=== PATIENT | female | born 1985 | race Caucasian/White ===

== ENCOUNTER 2020-12-30 16:53 | Inpatient (IN) ==
[2020-12-30] MEDS ORDERED: Lactated Ringers 1000 ml BAG 1,000 ML IV ONE ×2 (17:46→19:28)
[2020-12-30] MEDS ORDERED: Buffered Lidocaine 1% SYRIN 1 ml INTRADERM ONE (17:46)
[2020-12-30] MEDS ORDERED: Lactated Ringers 1000 ml BAG 1,000 ML IV SCH ×2 (18:00→20:00)
[2020-12-30] MEDS ORDERED: OBEPIDURAL 250 ML EPIDURAL ONE (18:28)
[2020-12-30 18:57] LABS: ABS Basophils 0.1 10^3/ul (0-0.2); ABS Lymphocytes 2.7 10^3/ul (1.0-4.8); ABS Monocytes 0.8 10^3/ul (0-0.8); ABS Neutrophils 18.3 10^3/ul (1.5-7.7); Eosinophil % 0.1 %; Hematocrit 37 % (35-47); Hemoglobin 12.8 g/dL (12.0-16.0); Lymphocyte % 12.4 %; Mean Corpuscular HGB Conc 34 g/dL (31-36); Mean Corpuscular Hemoglobin 31 pg (27-31); Mean Corpuscular Volume 91 fL (80-97); Mean Platelet Volume 7.6 fL (7.4-10.4); Platelet Count 337 10^3/uL (150-450); Red Blood Count 4.13 10^6 /uL (3.70-4.87); Red Cell Distribution Width 13 % (10-15); White Blood Count 21.8 10^3/uL (3.5-10.8)
[2020-12-30 19:00] LABS: Urine Appearance Cloudy; Urine Bilirubin Negative (Negative); Urine Blood 2+ (Negative); Urine Color Yellow; Urine Glucose Negative (Negative); Urine Ketones 1+ (Negative); Urine Nitrite Negative (Negative); Urine Protein 1+(30 mg/dL) (Negative); Urine Specific Gravity 1.017 (1.002-1.030); Urine Urobilinogen Positive (Negative)
[2020-12-30] MEDS ORDERED: Phenylephrine 40 mcg/mL 10mL (400mcg) SYRINGE ONE (19:08)
[2020-12-30 19:16] LABS: Urine Bacteria Absent (Absent); Urine Red Blood Cell 3+(>10/hpf) (Absent); Urine Squamous Epithelial Cell Present (Absent); Urine White Blood Cell Trace(0-5/hpf) (Absent)
[2020-12-30] MEDS ORDERED: Sodium Citrate/Citric Acid LIQ 15 ML UDC PO PRN (19:28)
[2020-12-30] MEDS ORDERED: Phenylephrine 40 mcg/mL 10mL (400mcg) SYRINGE IV PUSH PRN ×2 (19:28)
[2020-12-30 19:30] LABS: Rapid COVID-19 Molecular Undetected (Undetected)
[2020-12-30 19:39] LABS: Rapid COVID-19 Molecular Undetected (Undetected)
[2020-12-30 19:46] LABS: Urine Benzodiazepine Screen None Detected (None Detect); Urine Cannabinoids Screen None Detected (None Detect); Urine Opiates Screen None Detected (None Detect)
[2020-12-30] MEDS ORDERED: OBEPIDURAL 250 ML EPIDURAL SCH (20:00)
[2020-12-30 20:26] LABS: Urine Appearance Cloudy; Urine Bilirubin Negative (Negative); Urine Blood Negative (Negative); Urine Color Yellow; Urine Glucose Negative (Negative); Urine Ketones 2+ (Negative); Urine Nitrite Negative (Negative); Urine Protein 1+(30 mg/dL) (Negative); Urine Urobilinogen Negative (Negative)
[2020-12-30 20:34] LABS: Urine Bacteria Absent (Absent); Urine Red Blood Cell Trace(0-2/hpf) (Absent); Urine White Blood Cell Trace(0-5/hpf) (Absent)
[2020-12-31] MEDS ORDERED: Oxytocin in LR 0 UNITS/0 ML BAG IVPB ONE (01:50)
[2020-12-31] MEDS ORDERED: ceFOXitin 2 GM IVPREMIX 2 GM/50 ML BAG ONE (02:40)
[2020-12-31] MEDS ORDERED: Sodium Citrate/Citric Acid LIQ 15 ML UDC ONE (03:13)
[2020-12-31] MEDS ORDERED: Bupivacaine 0.5% SDV PF 30ML VIAL ONE (03:25)
[2020-12-31] MEDS ORDERED: Morphine PF AMP (0.5MG/ML) 5 MG/10 ML AMP ONE (03:38)
[2020-12-31] MEDS ORDERED: Midazolam 2 mg/2 ml VIAL 1 mg/ml 2 ml VIAL (2 mg) ONE (03:54)
[2020-12-31] MEDS ORDERED: Oxytocin 10 UNITS/ML 1 ML VIAL ONE (04:10)
[2020-12-31] MEDS ORDERED: Ondansetron 4 mg VIAL 2 MG/ML 2 ml VIAL ONE (04:11)
[2020-12-31] MEDS ORDERED: Witch Hazel PAD JAR TOPICAL PRN (04:46)
[2020-12-31] MEDS ORDERED: Dibucaine 1% OINT 28.35 GM TUBE PR PRN (04:46)
[2020-12-31] MEDS ORDERED: Glycerin ADULT 2.4 gm SUPP PR PRN (04:46)
[2020-12-31] MEDS ORDERED: Oxytocin in LR 20 UNITS/1,000 ML BAG IVPB SCH (05:00)
[2020-12-31] MEDS ORDERED: Lactated Ringers 1000 ml BAG 1,000 ML IV SCH (05:00)
[2020-12-31] MEDS ORDERED: Naloxone 0.4 mg VIAL 0.4 mg/ml 1 ml VIAL IV PRN (05:31)
[2020-12-31] MEDS ORDERED: diPHENhydraMINE IV 50 MG/ML 1 ml VIAL (BENADRYL) IV PRN (05:31)
[2020-12-31] MEDS ORDERED: Ondansetron 4 mg VIAL 2 MG/ML 2 ml VIAL IV PRN (05:31)
[2020-12-31] MEDS ORDERED: Metoclopramide 5 MG/ML VIAL (10 mg) IV PRN (05:31)
[2020-12-31] MEDS ORDERED: HYDROcodone/ACETAMIN 5/325 mg TAB PO PRN (05:31)
[2021-01-01 09:32] LABS: ABS Basophils 0.1 10^3/ul (0-0.2); ABS Lymphocytes 2.7 10^3/ul (1.0-4.8); ABS Monocytes 0.9 10^3/ul (0-0.8); ABS Neutrophils 17.1 10^3/ul (1.5-7.7); Eosinophil % 0.2 %; Hematocrit 30 % (35-47); Hemoglobin 9.9 g/dL (12.0-16.0); Lymphocyte % 12.8 %; Mean Corpuscular HGB Conc 34 g/dL (31-36); Mean Corpuscular Hemoglobin 31 pg (27-31); Mean Corpuscular Volume 93 fL (80-97); Mean Platelet Volume 7.2 fL (7.4-10.4); Platelet Count 278 10^3/uL (150-450); Red Blood Count 3.21 10^6 /uL (3.70-4.87); Red Cell Distribution Width 13 % (10-15); White Blood Count 20.8 10^3/uL (3.5-10.8)
[2021-01-03 08:18] VITALS: BP 120/78
== END 2021-01-03 10:50 | disposition home or self-care (01) | DRG 540 ==
LOC: MCHOBOUT 16:53 → MCHOB 17:46
PROVIDERS: ADMIT Midwife; ATTEND Obstetrics & Gynecology